=== PATIENT | female | born 1945 | race Caucasian/White ===

== ENCOUNTER → 2017-09-14 | Outpatient (CLI) | payer MEDICARE ==
[~2017-09-14] MED LIST: ALENDRONATE SOD70 MG PO; BYSTOLIC5 MG PO; EVOXAC30 MG PO; KEFLEX500 MG PO; NAPROSYN375 MG PO; NORCO 5-325 TA1 EACH PO; RESTASIS1 EACH OU; TRAMADOL HCL100 MG PO; TYLENOL WITH C1 EACH PO
--- NOTE | 2017-09-14 13:01 | Diagnostic Imaging Report ---
HUMERUS RIGHT 2+VIEWS HISTORY: Contusion on upper arm from fall. COMPARISON: None available. FINDINGS: Bones: No acute displaced fracture. Osseous alignment is within normal limits. Joints: The joint spaces are well-maintained. Soft tissues: The soft tissues appear unremarkable. IMPRESSION: No acute radiographic abnormality. Signed by: DR. Abdifatah Steele MD on 09/14/2017 12:58 PM
== END ==
LOC: RAD 12:13
PROVIDERS: ATTEND Family Medicine
DX: S40.021A Contusion of right upper arm, initial encounter (principal)

== ENCOUNTER → 2017-11-20 | Outpatient (CLI) | payer MEDICARE ==
--- NOTE | 2017-11-20 11:59 | Diagnostic Imaging Report ---
EXAMINATION: PA and lateral views of the chest. COMPARISON: None CLINICAL HISTORY: Posterior right sided rib pain DISCUSSION: Lines/tubes: None. Lungs: The lungs are well inflated and grossly clear. There is no evidence of pneumonia or pulmonary edema. Pleura: There is no pleural effusion or pneumothorax. Heart and mediastinum: Cardiomediastinal silhouette is unremarkable. Pulmonary vasculature is normal. Bones and soft tissues: No acute bony abnormalities. Marked dextroscoliosis of the thoracolumbar spine IMPRESSION: No acute cardiopulmonary abnormalities. Signed by: Dr. Ayush Call M.D. on 11/20/2017 11:56 AM
--- NOTE | 2017-11-20 12:15 | Diagnostic Imaging Report ---
EXAMINATION: Thoracic spine, 3 views. CLINICAL HISTORY: Posterior right-sided rib pain COMPARISON: None. Findings: Marked rightward rotoscoliosis of the thoracolumbar spine. There is no evidence of acute, displaced fracture or subluxation. No aggressive lytic lytic or expansile lesion. No sclerotic lesions. The paravertebral soft tissues are unremarkable. IMPRESSION: 1. Marked rightward rotoscoliosis of the thoracolumbar spine, without acute abnormalities Signed by: Dr. Ayush Call M.D. on 11/20/2017 12:11 PM
--- NOTE | 2017-11-20 13:20 | Diagnostic Imaging Report ---
Exam: Unilateral rib series with chest x-ray History: Posterior right-sided rib pain Comparison: None. Findings: There is normal bone mineralization. No acute, displaced fracture or dislocation. Acute, displaced fractures of the right ninth, 10th and 11th ribs. Other bony structures are intact. No lytic or blastic lesions. Marked rightward rotoscoliosis of the thoracic and lumbar spine. No definite pneumothorax is identified. Impression: 1. Acute, displaced fractures of the right ninth, 10th and 11th ribs. No definite pneumothorax is identified. Signed by: Dr. Ayush Call M.D. on 11/20/2017 1:17 PM
== END ==
LOC: RAD 10:29
PROVIDERS: ATTEND Family Medicine
DX: M54.6 Pain in thoracic spine (principal); R07.89 Other chest pain
CPT/HCPCS: 71046; 71101; 72070

== ENCOUNTER → 2020-12-17 | Outpatient (CLI) | payer MEDICARE | LOC: MAMMO 09:52 | PROVIDERS: ATTEND Family Medicine | DX: Z12.31 Encounter for screening mammogram for malignant neoplasm of breast (principal) | CPT/HCPCS: 77067 ==

== ENCOUNTER → 2022-01-06 | Outpatient (CLI) | payer MEDICARE | LOC: MAMMO 10:44 | PROVIDERS: ATTEND Family Medicine | DX: Z12.31 Encounter for screening mammogram for malignant neoplasm of breast (principal) | CPT/HCPCS: 77067 ==